=== PATIENT | male | born 1990 | race Caucasian/White ===

== ENCOUNTER 2018-04-25 22:06 | Emergency (ER) | payer OTHER ==
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
[2018-04-25 22:37] VITALS: TEMP 98.2
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
[2018-04-25 23:37] VITALS: BP 132/75; O2SAT 97
== END 2018-04-25 23:37 | disposition home or self-care (01) ==
LOC: ER 22:06
DX: S00.83XA Contusion of other part of head, initial encounter (principal); Y04.0XXA Assault by unarmed brawl or fight, initial encounter; Y99.0 Civilian activity done for income or pay; Y92.69 Other specified industrial and construction area as the place of occurrence of the external cause; Z88.6 Allergy status to analgesic agent; Z88.0 Allergy status to penicillin; Z88.2 Allergy status to sulfonamides